=== PATIENT | male | born 1960 | race African-American/Black ===

== ENCOUNTER 2023-05-18 09:29 | Inpatient (IN) | payer OTHER ==
[2023-05-18 09:43] VITALS: BMI 28.2
[2023-05-18] MEDS ORDERED: BENZONATATE 200 MG CAPSULE PO PRN (10:47)
[2023-05-18] MEDS ORDERED: COLLOIDAL OATMEAL 1 BAR EACH TP PRN (10:47)
[2023-05-18] MEDS ORDERED: guaiFENesin 600 MG TABLET.ER (FP) PO PRN (10:47)
[2023-05-18] MEDS ORDERED: MAG HYDROX/AL HYDROX/SIMETH 30 ML UNIT-DOSE CUP PO PRN (10:47)
[2023-05-18] MEDS ORDERED: NALOXONE HCL 0.4 MG/ML VIAL IM PRN (10:47)
[2023-05-18] MEDS ORDERED: ACETAMINOPHEN 325 MG TABLET (FP) PO PRN (10:47)
[2023-05-18] MEDS ORDERED: IBUPROFEN 600 MG TABLET (FP) PO PRN (10:47)
[2023-05-18] MEDS ORDERED: NALOXONE HCL (KLOXXADO) 8 MG SPRAY NS PRN (10:47)
[2023-05-18] MEDS ORDERED: MAGNESIUM HYDROX 2400MG/30ML ORAL SUSPENSION 30 ML CUP PO PRN (10:47)
[2023-05-18] MEDS ORDERED: LOPERAMIDE HCL 2 MG CAPSULE PO PRN (10:47)
[2023-05-18] MEDS ORDERED: BENZOCAINE/MENTHOL (CHLORASEPTIC ) LOZENGE MM PRN (10:47)
[2023-05-18] MEDS ORDERED: POLYETHYLENE GLYCOL (HEALTHYLAX) 3350 17 GM PACKET PO PRN (10:47)
[2023-05-18] MEDS ORDERED: NICOTINE POLACRILEX 2 MG GUM BUC PRN (10:47)
[2023-05-18] MEDS ORDERED: hydrOXYzine PAMOATE 25 MG CAPSULE (FP) PO PRN (10:47)
[2023-05-18] MEDS ORDERED: TUBERCULIN PPD 5 TU/0.1ML VIAL ID ONE (14:05)
[2023-05-18] MEDS ORDERED: TUBERCULIN PPD 5 TU/0.1ML SYRINGE (IN PATIENT USE ONLY) ID ONE (14:49)
[2023-05-18] MEDS: MELATONIN 5 MG TABLETS PO SCH (21:35)
[2023-05-18] MEDS: THIAMINE HCL 100 MG TABLET (FP) PO SCH (21:35)
[2023-05-19] MEDS: PRENATAL VITAMINS W/ FOLIC ACID TABLET (FP) PO SCH (10:16)
[2023-05-19 12:48] LABS: HEMATOCRIT 39.1 % (35.4-49); HEMOGLOBIN 12.9 GM/dL (11.7-16.9); MCH 30.9 pg (25.7-33.7); MEAN CELL VOLUME 93.6 fl (80-96); MEAN PLT VOLUME 8.4 fl (7.5-11.1); PLATELET COUNT 292 10^3/uL (134-434); RBC 4.18 M/mm3 (4.00-5.60); RDW 15.5 % (11.9-15.9); WHITE BLOOD COUNT 6.7 K/mm3 (4.0-10.0)
[2023-05-19 12:52] LABS: CHLORIDE 106 mmol/L (98-107); POTASSIUM 4.1 mmol/L (3.5-5.1); SODIUM 139 mmol/L (136-145)
[2023-05-19 12:56] LABS: ANION GAP 7 mmol/L (4-13); BLOOD UREA NITROGEN 12.7 mg/dL (7-18); CO2 26 mmol/L (21-32); GLUCOSE,RANDOM 165 mg/dL (74-106)
[2023-05-19 12:59] LABS: SGOT/AST 20 U/L (15-37); SGPT/ALT 27 U/L (13-61)
[2023-05-19 13:00] LABS: BILIRUBIN,TOTAL 0.3 mg/dL (0.2-1)
[2023-05-19 13:01] LABS: ALK PHOS 93 U/L (45-117)
[2023-05-19] MEDS: MELATONIN 5 MG TABLETS PO SCH (21:21)
[2023-05-19] MEDS: THIAMINE HCL 100 MG TABLET (FP) PO SCH (21:21)
[2023-05-20] MEDS: PRENATAL VITAMINS W/ FOLIC ACID TABLET (FP) PO SCH (10:30)
[2023-05-20 15:03] LABS: URINE APPEARANCE TURBID; URINE BILIRUBIN NEGATIVE (NEGATIVE); URINE COLOR YELLOW; URINE GLUCOSE (UA) NEGATIVE (NEGATIVE); URINE KETONE NEGATIVE (NEGATIVE); URINE LEUK ESTERASE NEGATIVE (NEGATIVE); URINE NITRITE NEGATIVE (NEGATIVE); URINE PROTEIN NEGATIVE (NEGATIVE); URINE UROBILINOGEN 0.2 mg/dL (0.2-1.0)
[2023-05-20] MEDS: MELATONIN 5 MG TABLETS PO SCH (21:14)
[2023-05-20] MEDS: THIAMINE HCL 100 MG TABLET (FP) PO SCH (21:15)
[2023-05-21] MEDS: PRENATAL VITAMINS W/ FOLIC ACID TABLET (FP) PO SCH (10:29)
[2023-05-21] MEDS: MELATONIN 5 MG TABLETS PO SCH (21:34)
[2023-05-21] MEDS: THIAMINE HCL 100 MG TABLET (FP) PO SCH (21:34)
[2023-05-22] MEDS: IBUPROFEN 400 MG TABLET (FP) PO PRN ×2 (10:14→21:19)
[2023-05-22] MEDS: PRENATAL VITAMINS W/ FOLIC ACID TABLET (FP) PO SCH (10:14)
[2023-05-22] MEDS: THIAMINE HCL 100 MG TABLET (FP) PO SCH (21:18)
[2023-05-22] MEDS: MELATONIN 5 MG TABLETS PO SCH (21:18)
[2023-05-23] MEDS: PRENATAL VITAMINS W/ FOLIC ACID TABLET (FP) PO SCH (10:28)
[2023-05-23] MEDS: MELATONIN 5 MG TABLETS PO SCH (21:14)
[2023-05-23] MEDS: THIAMINE HCL 100 MG TABLET (FP) PO SCH (21:14)
[2023-05-24] MEDS: PRENATAL VITAMINS W/ FOLIC ACID TABLET (FP) PO SCH (10:56)
[2023-05-24] MEDS: THIAMINE HCL 100 MG TABLET (FP) PO SCH (21:27)
[2023-05-24] MEDS: MELATONIN 5 MG TABLETS PO SCH (21:27)
[2023-05-25] MEDS: PRENATAL VITAMINS W/ FOLIC ACID TABLET (FP) PO SCH (10:51)
[2023-05-25] MEDS: MELATONIN 5 MG TABLETS PO SCH (21:19)
[2023-05-25] MEDS: THIAMINE HCL 100 MG TABLET (FP) PO SCH (21:19)
[2023-05-26] MEDS: PRENATAL VITAMINS W/ FOLIC ACID TABLET (FP) PO SCH (10:46)
[2023-05-26] MEDS: MELATONIN 5 MG TABLETS PO SCH (21:17)
[2023-05-26] MEDS: THIAMINE HCL 100 MG TABLET (FP) PO SCH (21:17)
[2023-05-27] MEDS: PRENATAL VITAMINS W/ FOLIC ACID TABLET (FP) PO SCH (09:44)
[2023-05-27] MEDS: MELATONIN 5 MG TABLETS PO SCH (21:28)
[2023-05-27] MEDS: THIAMINE HCL 100 MG TABLET (FP) PO SCH (21:28)
[2023-05-28 06:53] VITALS: RESP 18
[2023-05-28] MEDS: PRENATAL VITAMINS W/ FOLIC ACID TABLET (FP) PO SCH (10:30)
[2023-05-28] MEDS: MELATONIN 5 MG TABLETS PO SCH (21:16)
[2023-05-28] MEDS: THIAMINE HCL 100 MG TABLET (FP) PO SCH (21:16)
[2023-05-29] MEDS: PRENATAL VITAMINS W/ FOLIC ACID TABLET (FP) PO SCH (10:20)
[2023-05-29] MEDS: MELATONIN 5 MG TABLETS PO SCH (21:09)
[2023-05-29] MEDS: THIAMINE HCL 100 MG TABLET (FP) PO SCH (21:09)
[2023-05-30 06:33] VITALS: BP 132/83; PULSE 70; TEMP 97.5
[2023-05-30] MEDS: PRENATAL VITAMINS W/ FOLIC ACID TABLET (FP) PO SCH (09:09)
== END 2023-05-30 09:13 | disposition home or self-care (01) | DRG 772 ==
LOC: YASAS 09:29 → Y3W 13:39
PROVIDERS: ADMIT Allergy & Immunology; ATTEND Psychiatry & Neurology Pain Medicine
PROC: HZ42ZZZ Group Counseling for Substance Abuse Treatment, Cognitive-Behavioral (ICD-10-PCS; principal; 2023-05-18)
DX: F10.20 Alcohol dependence, uncomplicated (principal); F14.20 Cocaine dependence, uncomplicated; F17.210 Nicotine dependence, cigarettes, uncomplicated
CPT/HCPCS: 36415; 80053; 80307; 81003; 82962; 85027; 86780; 87635; 93005; 93010